=== PATIENT | female | born 1990 | race Caucasian/White ===

== ENCOUNTER 2019-06-09 20:54 | Inpatient (IN) | payer OTHER ==
[~2019-06-09] VITALS: Ht 165.1 cm; Wt 100.9 kg
[2019-06-09 20:50] VITALS: BP 105/60
[2019-06-09 21:05] VITALS: BP 105/60
[2019-06-09] MEDS ORDERED: D5%-LACTATED RINGERS 1,000 ML IV SCH (21:10)
[2019-06-09] MEDS ORDERED: FENTANYL/BUPIV./NS/PF 250 ML EPIDCONT SCH ×2 (21:10→22:37)
[2019-06-09] MEDS ORDERED: OXYTOCIN 30U/ 0.9% NaCL 500ML 500 ML IV ONE (21:10)
[2019-06-09] MEDS ORDERED: NEWBORN KIT ONE (21:14)
[2019-06-09] MEDS ORDERED: OXYTOCIN 30U/ 0.9% NaCL 500ML 500 ML ONE (21:14)
[2019-06-09] MEDS: LACTATED RINGERS 1,000 ML IV SCH (21:15)
[2019-06-09] MEDS ORDERED: FENTANYL PF 100 MCG/2ML IV PRN (21:30)
[2019-06-09] MEDS ORDERED: TERBUTALINE 1 MG/ML, 1ML SQ PRN (21:30)
[2019-06-09] MEDS ORDERED: ONDANSETRON 2MG/ML, 2ML IVPush PRN (21:30)
[2019-06-09] MEDS ORDERED: PLEASE ENTER HEIGHT AND WEIGHT MC SCH (21:30)
[2019-06-09] MEDS ORDERED: PLEASE ENTER ALLERGIES MC SCH (21:30)
[2019-06-09] MEDS ORDERED: CALCIUM CARBONATE 500 MG TAB.CHEW PO PRN (21:30)
[2019-06-09] MEDS ORDERED: TERBUTALINE 1 MG/ML, 1ML IVPush PRN (21:30)
[2019-06-09] MEDS ORDERED: FENTANYL PF 100 MCG/2ML IVPush PRN (21:30)
[2019-06-09 21:49] LABS: BASOPHILS # (AUTO) 0.03 x10^3/uL (0-0.1); BASOPHILS % (AUTO) 0 % (0-1); EOSINOPHILS # (AUTO) 0.02 x10^3/uL (0-0.4); EOSINOPHILS % (AUTO) 0 % (1-7); LYMPHOCYTES # (AUTO) 1.13 x10^3/uL (1-3.4); LYMPHOCYTES % (AUTO) 8 % (22-44); MD NO; MEAN CORPUSCULAR HEMOGLOBIN 28.7 pg (27.0-34.8); MEAN CORPUSCULAR HGB CONC 32.9 g/dL (32.4-35.8); MEAN CORPUSCULAR VOLUME 87.3 fL (80-100); MEAN PLATELET VOLUME 8.3 fL (7.4-10.4); MONOCYTES # (AUTO) 0.71 x10^3/uL (0.2-0.8); MONOCYTES % (AUTO) 5 % (2-9); NEUTROPHILS # (AUTO) 12.71 x10^3/uL (1.8-6.8); NEUTROPHILS % (AUTO) 87 % (42-75); PLATELET COUNT 277 x10^3/uL (130-400); RED BLOOD COUNT 4.22 x10^6/uL (3.82-5.3); RED CELL DISTRIBUTION WIDTH 15.1 % (9.6-15.2)
[2019-06-09] MEDS ORDERED: FENTANYL PF 500 MCG, BUPIVACAINE/PF 0.5%, 30ML 62.5 ML in SODIUM CHLORIDE 0.9% 177.5 ML EPIDCONT SCH (22:30)
[2019-06-09] MEDS ORDERED: LACTATED RINGERS 1,000 ML IV SCH (22:37)
[2019-06-09] MEDS ORDERED: BUPIVACAINE 0.25% ONE (22:40)
[2019-06-09] MEDS ORDERED: EPHEDRINE 50 MG/ML, 1ML IVPush PRN (23:00)
[2019-06-09] MEDS ORDERED: LACTATED RINGERS 1,000 ML IVBOLUS PRN (23:00)
[2019-06-09] MEDS ORDERED: NALOXONE 0.4 MG/ML, 1ML IVPush PRN (23:00)
[2019-06-10] MEDS: LACTATED RINGERS 1,000 ML IV SCH (02:01)
[2019-06-10] MEDS ORDERED: OXYTOCIN 30U/ 0.9% NaCL 500ML 500 ML ONE (03:24)
[2019-06-10] MEDS: OXYTOCIN 30U/ 0.9% NaCL 500ML 500 ML IV SCH ×2 (03:54→13:31)
[2019-06-10] MEDS ORDERED: METHYLERGONOVINE 0.2 MG/ML IM PRN (04:00)
[2019-06-10] MEDS ORDERED: TRANEXAMIC ACID 100 MG/ML, 10ML IV ONE (04:00)
[2019-06-10] MEDS ORDERED: IBUPROFEN 600 MG TABLET PO PRN (04:00)
[2019-06-10] MEDS ORDERED: ONDANSETRON 2MG/ML, 2ML IV PRN (04:00)
[2019-06-10] MEDS ORDERED: MISOPROSTOL 200 MCG TABLET PR PRN (04:00)
[2019-06-10] MEDS ORDERED: SIMETHICONE 80 MG CHEW TAB PO PRN (04:00)
[2019-06-10] MEDS ORDERED: CARBOPROST TROMETHAMINE 250 MCG/ML, 1ML IM PRN (04:00)
[2019-06-10] MEDS ORDERED: OXYcodone/APAP 5/325MG TABLET PO PRN (04:00)
[2019-06-10] MEDS ORDERED: METOCLOPRAMIDE 5 MG/ML, 2ML IV PRN (04:00)
[2019-06-10] MEDS ORDERED: ACETAMINOPHEN 325 MG TABLET PO PRN ×2 (04:00)
[2019-06-10 04:40] VITALS: BP 109/71
[2019-06-10] MEDS: PRENATAL VIT/IRON/FA 1 EACH TABLET PO SCH (07:31)
[2019-06-10] MEDS: DOCUSATE 100 MG CAPSULE PO PRN (07:31)
[2019-06-10 07:59] VITALS: BP 103/66
[2019-06-10 11:27] LABS: MEAN CORPUSCULAR HEMOGLOBIN 29.1 pg (27.0-34.8); MEAN CORPUSCULAR HGB CONC 33.2 g/dL (32.4-35.8); MEAN CORPUSCULAR VOLUME 87.7 fL (80-100); MEAN PLATELET VOLUME 8.1 fL (7.4-10.4); PLATELET COUNT 269 x10^3/uL (130-400); RED BLOOD COUNT 4.23 x10^6/uL (3.82-5.3)
[2019-06-10 11:43] LABS: MD YES
[2019-06-10 11:46] LABS: BAND#(MANUAL) 1.39 x10^3/uL; BANDS%(MANUAL) 6 % (0-7); LYMPH#(MANUAL) 1.39 x10^3/uL (1-3.4); LYMPHS% (MANUAL) 6 % (22-44); MONOS#(MANUAL) 2.31 x10^3/uL (0.3-2.7); MONOS% (MANUAL) 10 % (2-9); REACTIVE LYMPHS # (MANUAL) 0.23 x10^3/uL (0-0); REACTIVE LYMPHS % (MANUAL) 1 % (0-0); SEG#(MANUAL) 17.79 x10^3/uL (1.8-6.8); SEGS% (MANUAL) 77 % (42-75)
[2019-06-10 11:47] LABS: <PLATELET ESTIMATE> ADEQUATE; <PLT MORPHOLOGY> NORMAL PLT MORPH; <RBC MORPHOLOGY> NORMAL
[2019-06-10 11:54] VITALS: BP 116/69
[2019-06-10 16:30] VITALS: BP 116/72
[2019-06-10 20:00] VITALS: BP 107/66
[2019-06-11 02:30] VITALS: BP 118/72
[2019-06-11 08:00] VITALS: BP 112/71
[2019-06-11] MEDS ORDERED: IBUP-1222 PO (08:32)
[2019-06-11] MEDS: DOCUSATE 100 MG CAPSULE PO PRN (09:10)
[2019-06-11] MEDS: PRENATAL VIT/IRON/FA 1 EACH TABLET PO SCH (09:10)
== END 2019-06-11 10:45 | disposition home or self-care (01) | DRG 807 ==
LOC: LDOP 20:54 → LDIP 21:28 → 2NW 06-10 04:38
PROVIDERS: ADMIT Obstetrics & Gynecology; ATTEND Obstetrics & Gynecology
PROC: 10E0XZZ Delivery of Products of Conception, External Approach (ICD-10-PCS; principal; 2019-06-10)
PROC: 0KQM0ZZ Repair Perineum Muscle, Open Approach (ICD-10-PCS; 2019-06-10)
PROC: 3E0R3BZ Introduction of Anesthetic Agent into Spinal Canal, Percutaneous Approach (ICD-10-PCS; 2019-06-10)
PROC: 00HU33Z Insertion of Infusion Device into Spinal Canal, Percutaneous Approach (ICD-10-PCS; 2019-06-10)
DX: O70.1 Second degree perineal laceration during delivery (principal); Z37.0 Single live birth; Z3A.40 40 weeks gestation of pregnancy; Z88.5 Allergy status to narcotic agent
CPT/HCPCS: 36415; 85025; 86592; 86850; 86900; G0378; J2590; J3010; J7120